=== PATIENT | female | born 1970 | race Asian ===

== ENCOUNTER 2020-08-07 09:01 | Day surgery (SDC) | payer BC ==
[~2020-08-07] VITALS: Ht 162.6 cm; Wt 62.2 kg
[2020-08-07] MEDS ORDERED: IBU400 MG PO (09:50)
[2020-08-07] MEDS ORDERED: ZYRTEC5 MG PO (09:50)
[2020-08-07 09:51] VITALS: BP 125/82; PULSE 64; TEMP 99.1
[2020-08-07 11:25] VITALS: BP 101/50; PULSE 72; TEMP 98.5
--- NOTE | 2020-08-07 11:25 | NUR ---
Patient arrives to [facility] via cart, accompanied by [facility] RN Giselle Javier. She is alert and oriented. She ambulates to the chair in her room with steady gait and standby assist. PIV to TKO. Spouse is at the bedside. Monitoring is applied -VSS and WNL on room air. She denies pain, nausea, or need. She is offered and receives water and a muffin. Call light in reach. Will continue to monitor.
[2020-08-07 11:40] VITALS: BP 112/70; PULSE 58
--- NOTE | 2020-08-07 11:44 | NUR ---
Dr. Serrano comes to the bedside and speaks with the patient at this time.
[2020-08-07 11:55] VITALS: BP 116/76; PULSE 53
--- NOTE | 2020-08-07 11:55 | NUR ---
VSS on room air. Denies pain, nausea, or need at this time.
--- NOTE | 2020-08-07 12:10 | NUR ---
Patient has met discharge criteria. Discharge instructions are discussed. She denies any questions and verbalizes understanding. PIV is removed with catheter intact and hemostasis achieved. She changes to her clothing independently. She is escorted to the exit via wheelchair by staff and discharged to home with ride in private vehicle to the care of her at 1210.
== END 2020-08-07 12:10 | disposition home or self-care (01) ==
LOC: SDCO 09:01
DX: Z12.11 Encounter for screening for malignant neoplasm of colon (principal); K62.89 Other specified diseases of anus and rectum; Z20.822 Contact with and (suspected) exposure to COVID-19
CPT/HCPCS: J2704; J3010; J7120